=== PATIENT | female | born 1995 ===

== ENCOUNTER 2019-08-19 13:54 | Outpatient (REF) | payer BC, SELFPAY ==
[2019-08-19 20:50] LABS: HGB 13.3 g/dL (12.0-15.5); Mean Corp. HGB Concentration 32.4 g/dL (32.0-36.0); Mean Corpuscular Hemoglobin 27.8 pg (27.0-33.0); Mean Corpuscular Volume 85.6 fL (80-95); Platelet Count 462 x1000/uL (130-400); RBC 4.79 m/cumm (4.00-5.20); RBC Distribution Width 13.9 % (11.7-14.6); White Blood Cell Count 8.29 k/cumm (4.4-10.8)
[2019-08-19 21:03] LABS: Anion Gap 7.9 mmol/L (3-11); BUN 14 mg/dL (7-18); CO2 28.1 mmol/L (21.0-32.0); CREATININE 0.77 mg/dL (0.55-1.02); Calcium 9.3 mg/dL (8.5-10.1); Chloride 105 mmol/L (98-107); Glucose 91 mg/dL (74-106); Potassium 4.4 mmol/L (3.5-5.1); Sodium 141 mmol/L (136-145); TSH (W/Ref FT4) 1.93 uIU/mL (0.36-3.74)
[2019-08-19 21:12] LABS: Vitamin D 25 Total 32.4 ng/ml (30-100)
[2019-08-19 21:41] LABS: Vitamin B12 286 pg/mL (193-986)
== END 2019-08-19 14:14 ==
LOC: NCHCN 13:54
PROVIDERS: PCP Nurse Practitioner Family; Visit Provider Nurse Practitioner Family
DX: F41.8 Other specified anxiety disorders (principal)
CPT/HCPCS: 80048; 82306; 85027; 82607; 84443

== ENCOUNTER 2019-10-29 13:31 | Outpatient (REF) | payer BC, SELFPAY ==
[2019-10-29 20:34] LABS: HCT 37.9 % (36.0-46.0); HGB 12.6 g/dL (12.0-15.5); Mean Corp. HGB Concentration 33.2 g/dL (32.0-36.0); Mean Corpuscular Hemoglobin 28.8 pg (27.0-33.0); Mean Corpuscular Volume 86.5 fL (80-95); Mean Platelet Volume 10.2 fL (8.0-11.0); Platelet Count 447 x1000/uL (130-400); RBC 4.38 m/cumm (4.00-5.20); RBC Distribution Width 13.6 % (11.7-14.6); White Blood Cell Count 7.52 k/cumm (4.4-10.8)
[2019-10-29 20:46] LABS: Anion Gap 8.7 mmol/L (3-11); BUN 12 mg/dL (7-18); CO2 26.3 mmol/L (21.0-32.0); CREATININE 0.77 mg/dL (0.55-1.02); Calcium 9.1 mg/dL (8.5-10.1); Chloride 104 mmol/L (98-107); Glucose 99 mg/dL (74-106); Potassium 4.2 mmol/L (3.5-5.1); Sodium 139 mmol/L (136-145)
[2019-10-29 21:53] LABS: Calculated LDL 102 mg/dL (<100); Cholesterol 178 mg/dL (<200); HDL Cholesterol 60 mg/dL (40-60); Triglyceride 80 mg/dL (<150); Vitamin B12 287 pg/mL (193-986)
[2019-10-31 14:43] LABS: Vitamin D 25 Total 33.4 ng/ml (30-100)
== END 2019-10-29 13:51 ==
LOC: NCHCN 13:31
PROVIDERS: PCP Nurse Practitioner Family; Visit Provider Nurse Practitioner Family
DX: E55.9 Vitamin D deficiency, unspecified (principal); R79.1 Abnormal coagulation profile; E53.8 Deficiency of other specified B group vitamins; E66.9 Obesity, unspecified
CPT/HCPCS: 80048; 80061; 82306; 85027; 82607